=== PATIENT | male | born 1995 | race Two or more races ===

== ENCOUNTER 2023-10-18 17:33 | Emergency (ER) | payer MEDICAID ==
[~2023-10-18] VITALS: Ht 175.3 cm; Wt 105.2 kg
[2023-10-18 17:34] VITALS: TEMP 98.7
[2023-10-18 17:55] VITALS: BP 154/94; PULSE 100; RESP 18; O2SAT 97
== END 2023-10-18 17:57 | disposition home or self-care (01) ==
LOC: ER 17:34
DX: S51.811D Laceration without foreign body of right forearm, subsequent encounter (principal); X58.XXXD Exposure to other specified factors, subsequent encounter
CPT/HCPCS: 99281

== ENCOUNTER 2023-10-23 19:55 | Emergency (ER) | payer MEDICAID ==
[~2023-10-23] VITALS: Ht 175.3 cm; Wt 90.9 kg
[2023-10-23 19:57] VITALS: BP 134/77; PULSE 79; RESP 18; TEMP 98.5; O2SAT 98
== END 2023-10-23 20:26 | disposition home or self-care (01) ==
LOC: ER 19:56
DX: S51.811D Laceration without foreign body of right forearm, subsequent encounter (principal); X58.XXXD Exposure to other specified factors, subsequent encounter
CPT/HCPCS: 99282